=== PATIENT | male | born 1960 | race Caucasian/White ===

== ENCOUNTER → 2018-04-30 11:26 | Outpatient (CLI) | payer OTHER, SELFPAY ==
--- NOTE | 2018-04-30 11:28 | DI.RAD.S_ITS ---
PROCEDURE: XR SHOULDER RT MIN 2V INDICATIONS: 57 year-old male with right shoulder pain. TECHNIQUE: 3 views of the shoulder were acquired. COMPARISON: [facility], , SHOULDER MINIMUM 2VIEW RIGHT, 07/30/2013, 8:13. FINDINGS: Bones: No fractures or dislocations. There is mild acromioclavicular joint degeneration. No suspicious bony lesions. Visualized ribs appear intact. Soft tissues: There is persistent small soft tissue calcification adjacent to the humeral head. IMPRESSION: No significant interval change in mild acromioclavicular joint degeneration, as well as rotator cuff calcific tendinitis. Dictated by: Lionel Ríos M.D. on 04/30/2018 at 12:26 Approved by: Lionel Ríos M.D. on 04/30/2018 at 12:28
== END ==
PROVIDERS: PCP Family Medicine; Visit Provider Physician Assistant
DX: M19.011 Primary osteoarthritis, right shoulder (principal); M75.31 Calcific tendinitis of right shoulder; M25.511 Pain in right shoulder
CPT/HCPCS: 73030

== ENCOUNTER → 2018-07-18 14:00 | Outpatient (CLI) | payer OTHER, SELFPAY | PROVIDERS: Family Provider Family Medicine; PCP Family Medicine | DX: Z23 Encounter for immunization (principal) | CPT/HCPCS: 90471; 90686 ==

== ENCOUNTER → 2018-12-28 07:37 | Outpatient (CLI) | payer OTHER, SELFPAY ==
--- NOTE | 2018-12-28 07:38 | DI.MRI.S_ITS ---
PROCEDURE: MR HEAD/BRAIN WO CON INDICATIONS: intermittent loss of vision right eye TECHNIQUE: Noncontrast axial T1 spin echo, axial T2 fast spin echo, sagittal and axial FLAIR, coronal T2 fast spin echo, axial gradient echo, axial diffusion and ADC through the brain. COMPARISON: [facility], , CT HEAD WITH CONTRAST, 06/04/2001, 8:51. FINDINGS: Image quality: Excellent. CSF Spaces: Basal cisterns are patent. No extra-axial fluid collections. Ventricles are normal in size and shape. Brain: No intracranial masses or hemorrhage. Zimmerman/white matter interface is normal. Brainstem appears normal. Diffusion-weighted images demonstrate no acute ischemic insult. No chronic ischemic insults. Normal intravascular flow voids are present. Skull and face: Calvarium has normal marrow signal. Orbits appear normal. Sinuses: Sinuses and mastoids are clear. IMPRESSION: 1. No explanation for vision loss. 2. No acute process. No recent infarct. Dictated by: Lori Huerta M.D. on 12/30/2018 at 9:01 Approved by: Lori Huerta M.D. on 12/30/2018 at 9:02
== END ==
PROVIDERS: Family Provider Family Medicine; PCP Family Medicine; Visit Provider Nurse Practitioner Family
DX: H53.9 Unspecified visual disturbance (principal)
CPT/HCPCS: 70551

== ENCOUNTER → 2018-12-31 07:07 | Outpatient (CLI) | payer OTHER, SELFPAY ==
--- NOTE | 2018-12-31 07:08 | DI.US.S_ITS ---
PROCEDURE: US CAROTID DOPPLER BI INDICATIONS: intermittent loss of vision right eye TECHNIQUE: Color and pulse Doppler interrogation was performed of both carotid systems, with image documentation and velocity measurements. COMPARISON: [facility], MR, MR HEAD/BRAIN WO CON, 12/28/2018, 7:56. FINDINGS: Stenosis calculations are based on SRU (Society of Radiologists in Ultrasound) criteria. Right side: Brachial blood pressure: 124/77 mm Hg. Common carotid artery peak systolic velocity: 78 cm/sec. Internal carotid artery peak systolic velocity: 82 cm/sec. Internal carotid artery end diastolic velocity: 33 cm/sec. External carotid artery peak systolic velocity: 132 cm/sec. ICA/CCA peak systolic ratio: 1.1. Zimmerman scale imaging description: Calcified plaques at the bifurcation Percent internal carotid artery stenosis: Less than 50%. Vertebral artery: Flow direction is antegrade. Left side: Brachial blood pressure: 128/83 mm Hg. Common carotid artery peak systolic velocity: 73 cm/sec. Internal carotid artery peak systolic velocity: 92 cm/sec. Internal carotid artery end diastolic velocity: 34 cm/sec. External carotid artery peak systolic velocity: 129 cm/sec. ICA/CCA peak systolic ratio: 1.3. Zimmerman scale imaging description: Posterior fat plaques at the bifurcation Percent internal carotid artery stenosis: Less than 50%. Vertebral artery: Flow direction is antegrade. IMPRESSION: 1. Less than 50% internal carotid artery stenosis bilaterally. 2. Calcified plaques at carotid bifurcations. 3. Antegrade vertebral artery flow bilaterally. Dictated by: Guy Johansen M.D. on 12/31/2018 at 11:31 Approved by: Guy Johansen M.D. on 12/31/2018 at 11:33
== END ==
PROVIDERS: Family Provider Family Medicine; PCP Family Medicine; Visit Provider Nurse Practitioner Family
DX: H53.9 Unspecified visual disturbance (principal); I65.23 Occlusion and stenosis of bilateral carotid arteries
CPT/HCPCS: 93880

== ENCOUNTER → 2019-08-05 11:06 | Outpatient (CLI) | payer OTHER, SELFPAY | PROVIDERS: PCP Family Medicine | DX: Z23 Encounter for immunization (principal) | CPT/HCPCS: 90471; 90686 ==

== ENCOUNTER → 2020-04-21 09:22 | Outpatient (CLI) | payer OTHER, SELFPAY ==
[2020-04-21 13:46] LABS: Aspartate Aminotransferase 21 IU/L (17-59); Cholesterol 149 mg/dL (140-199); HDL Cholesterol 33 mg/dL (40-60); LDL Cholesterol Calculated 80 mg/dL (<100); Triglycerides 181 mg/dL (35-150)
== END ==
PROVIDERS: PCP Internal Medicine; Referring Provider Internal Medicine; Visit Provider Internal Medicine
DX: E78.2 Mixed hyperlipidemia (principal)
CPT/HCPCS: 36415; 80061; 84450

== ENCOUNTER → 2020-08-10 19:59 | Outpatient (CLI) | payer OTHER, SELFPAY | PROVIDERS: PCP Internal Medicine; Referring Provider Internal Medicine; Visit Provider Internal Medicine | DX: Z23 Encounter for immunization (principal) | CPT/HCPCS: 90471; 90686 ==

== ENCOUNTER → 2020-11-04 11:43 | Outpatient (CLI) | payer OTHER, SELFPAY ==
[2020-11-04] MEDS: COVID-19 VACC(MODERNA-1)/PF 100 MCG/0.5 ML VIAL IM (11:48)
== END ==
PROVIDERS: PCP Internal Medicine; Visit Provider Internal Medicine
DX: Z23 Encounter for immunization (principal)
CPT/HCPCS: 0011A; 91301

== ENCOUNTER → 2020-12-01 16:04 | Outpatient (CLI) | payer OTHER, SELFPAY ==
[2020-12-01] MEDS: COVID-19 VACC #2, MRNA(MOD) 100 MCG/0.5 ML VIAL IM (16:14)
== END ==
PROVIDERS: PCP Internal Medicine; Visit Provider Internal Medicine
DX: Z23 Encounter for immunization (principal)
CPT/HCPCS: 0012A; 91301

== ENCOUNTER → 2021-03-09 09:07 | Outpatient (CLI) | payer OTHER, SELFPAY ==
--- NOTE | 2021-03-09 | DI.RAD.S_ITS ---
PROCEDURE: XR SHOULDER LT MIN 2V INDICATIONS: shoulder pain TECHNIQUE: 3 views of the shoulder were acquired. COMPARISON: [facility], CR, XR SHOULDER RT MIN 2V, 04/30/2018, 11:25. FINDINGS: Bones: No fractures or dislocations. No suspicious bony lesions. Visualized ribs appear intact. Moderate acromioclavicular and mild glenohumeral joint space narrowing with periarticular osteophyte formation. Soft tissues: Calcification involving the rotator cuff. IMPRESSION: 1. Moderate acromioclavicular and mild glenohumeral joint degeneration. 2. Calcific tendinitis of the rotator cuff. Dictated by: Arie YAN Interpreted: Genia Rainey MD on 03/09/2021 at 9:46 Transcribed by: TRISHA on 03/09/2021 at 9:47 Approved by: Genia Rainey M.D. on 03/09/2021 at 13:28
== END ==
PROVIDERS: PCP Internal Medicine; Referring Provider Internal Medicine; Visit Provider Internal Medicine
DX: M25.519 Pain in unspecified shoulder (principal); M19.012 Primary osteoarthritis, left shoulder; M75.32 Calcific tendinitis of left shoulder
CPT/HCPCS: 73030

== ENCOUNTER → 2021-03-12 07:35 | Outpatient (CLI) | payer OTHER, SELFPAY ==
[2021-03-12 09:31] LABS: Cholesterol 150 mg/dL (140-199); Glucose 98 mg/dL (70-100); HDL Cholesterol 43 mg/dL (40-60); LDL Cholesterol Calculated 93 mg/dL (<100); Triglycerides 70 mg/dL (35-150)
[2021-03-14 10:57] LABS: Prostate Specific Antigen 0.515 ng/mL (0.10-4.00)
== END ==
PROVIDERS: PCP Internal Medicine; Referring Provider Internal Medicine; Visit Provider Internal Medicine
DX: E78.2 Mixed hyperlipidemia (principal); N40.1 Benign prostatic hyperplasia with lower urinary tract symptoms
CPT/HCPCS: 36415; 80061; 82947; 84153

== ENCOUNTER → 2021-08-16 | Outpatient (CLI) | payer OTHER, SELFPAY | PROVIDERS: PCP Internal Medicine; Referring Provider Internal Medicine; Visit Provider Internal Medicine | DX: Z23 Encounter for immunization (principal) | CPT/HCPCS: 90471; 90686 ==

== ENCOUNTER → 2021-09-13 15:58 | Outpatient (CLI) | payer OTHER, SELFPAY ==
[2021-09-13 16:37] LABS: COVID19 -Nasal RAPID Negative (Negative)
== END ==
PROVIDERS: PCP Internal Medicine; Referring Provider Physician Assistant; Visit Provider Physician Assistant
DX: Z20.822 Contact with and (suspected) exposure to COVID-19 (principal)
CPT/HCPCS: 87635

== ENCOUNTER → 2021-09-21 16:10 | Outpatient (CLI) | payer OTHER, SELFPAY ==
[2021-09-21 16:42] LABS: COVID19 -Nasal RAPID Negative (Negative)
== END ==
PROVIDERS: PCP Internal Medicine; Referring Provider Nurse Practitioner Family; Visit Provider Nurse Practitioner Family
DX: Z20.822 Contact with and (suspected) exposure to COVID-19 (principal)
CPT/HCPCS: 87635

== ENCOUNTER → 2022-08-18 10:14 | Outpatient (CLI) | payer OTHER, SELFPAY | PROVIDERS: PCP Internal Medicine; Referring Provider Internal Medicine; Visit Provider Internal Medicine | DX: Z23 Encounter for immunization (principal) | CPT/HCPCS: 90471; 90686 ==

== ENCOUNTER → 2023-01-15 07:06 | Outpatient (CLI) | payer OTHER, SELFPAY ==
--- NOTE | 2023-01-15 | DI.RAD.S_ITS ---
PROCEDURE: XR CHEST 2V INDICATIONS: COUGH TECHNIQUE: 2 views of the chest were acquired. COMPARISON: None. FINDINGS: Surgical changes and devices: None. Lungs and pleura: Lungs are clear. No pleural effusions or pneumothorax. Mediastinum: Mediastinal contours are normal. Heart size is normal. Bones and chest wall: No suspicious bony abnormalities. Soft tissues appear unremarkable. IMPRESSION: No acute cardiopulmonary abnormality. Dictated by: Marciano Zamora M.D. on 01/15/2023 at 9:09 Approved by: Marciano Zamora M.D. on 01/15/2023 at 9:11
== END ==
PROVIDERS: PCP Student in an Organized Health Care Education/Training Program; Referring Provider Student in an Organized Health Care Education/Training Program; Visit Provider Student in an Organized Health Care Education/Training Program
DX: R05.3 Chronic cough (principal)
CPT/HCPCS: 71046

== ENCOUNTER → 2023-08-16 | Outpatient (CLI) | payer OTHER, SELFPAY | PROVIDERS: PCP Student in an Organized Health Care Education/Training Program; Referring Provider Family Medicine; Visit Provider Family Medicine | DX: Z23 Encounter for immunization (principal) | CPT/HCPCS: 90471; 90686 ==

== ENCOUNTER → 2024-02-09 07:43 | Outpatient (CLI) | payer OTHER, SELFPAY ==
[2024-02-09 08:48] LABS: Alanine Aminotransferase 31 IU/L (<50); Albumin 4.1 g/dL (3.5-5.0); Albumin Globulin Ratio 1.5 (1.0-2.8); Alkaline Phosphatase 83 U/L (38-126); Aspartate Aminotransferase 20 IU/L (17-59); Bilirubin Total 0.8 mg/dL (0.2-1.3); Blood Urea Nitrogen 17 mg/dL (9-20); Calcium 9.1 mg/dL (8.4-10.2); Carbon Dioxide 25 mmol/L (22-32); Chloride 106 mmol/L (98-107); Cholesterol 180 mg/dL (140-199); Estimated Glomerular Filt Rate > 60 mL/min (>60); Globulin 2.8 g/dL (1.7-4.1); Glucose 102 mg/dL (80-110); HDL Cholesterol 40 mg/dL (40-60); HEMOLYSIS < 15 (0-50); LDL Cholesterol Calculated 118 mg/dL (<100); Sodium 139 mmol/L (137-145); Total Protein 6.9 g/dL (6.3-8.2); Triglycerides 112 mg/dL (35-150)
[2024-02-09 09:19] LABS: Prostate Specific Antigen 0.583 ng/mL (0.10-4.00)
[2024-02-11 18:18] LABS: Hep C Virus Ab w/Reflex Quant NEGATIVE s/c (NEGATIVE)
== END ==
PROVIDERS: PCP Student in an Organized Health Care Education/Training Program; Referring Provider Internal Medicine; Visit Provider Internal Medicine
DX: E78.2 Mixed hyperlipidemia (principal); Z13.1 Encounter for screening for diabetes mellitus; Z11.59 Encounter for screening for other viral diseases; R35.0 Frequency of micturition
CPT/HCPCS: 36415; 80053; 80061; 84153; 86803; 87522

== ENCOUNTER → 2024-02-29 08:35 | Outpatient (CLI) | payer OTHER, SELFPAY ==
--- NOTE | 2024-02-29 | DI.US.S_ITS ---
PROCEDURE: US PERIPH VENOUS UP EXTREM RT INDICATIONS: EDEMA OF RIGHT UPPER ARM TECHNIQUE: Real-time imaging, as well as color and pulse Doppler interrogation, was performed of the upper extremity deep veins from the inferior neck to the antecubital fossa. COMPARISON: None. FINDINGS: The internal jugular vein, visualized portions of the subclavian vein, axillary, and brachial veins are free of intraluminal thrombus. Where physically possible, the veins are normally compressible. Color and pulse Doppler demonstrate normal intraluminal flow, with expected phasicity and pulsatility. Additional scanning of the cephalic and basilic veins of the superficial system demonstrates normal compressibility, without thrombus. The distal radial artery and ulnar artery are examined and demonstrate normal appearing, triphasic waveforms. IMPRESSION: No findings of upper extremity deep venous thrombosis can be seen. Normal appearing, triphasic waveforms can be seen involving the distal aspects of the radial artery and the ulnar artery. Dictated by: Virgil Gonzales M.D. on 02/29/2024 at 11:52 Approved by: Virgil Gonzales M.D. on 02/29/2024 at 11:53
== END ==
PROVIDERS: PCP Internal Medicine; Referring Provider Internal Medicine; Visit Provider Internal Medicine
DX: R60.0 Localized edema (principal)
CPT/HCPCS: 93971

== ENCOUNTER 2024-06-06 13:53 | Emergency (ER) | payer OTHER, SELFPAY ==
[2024-06-06] VITALS (21 sets, daily range): BP systolic 133–237; BP diastolic 56–106; PULSE 67–101; RESP 14–25; TEMP 36.9; O2SAT 95–99; BMI 31.6
--- NOTE | 2024-06-06 14:00 | DI.RAD.S_ITS ---
PROCEDURE: XR CHEST 1V INDICATIONS: chest pain TECHNIQUE: One view of the chest was acquired. COMPARISON: [facility], CR, XR CHEST 2V, 01/15/2023, 7:07. FINDINGS: Surgical changes and devices: None. Lungs and pleura: Lungs are clear. No pleural effusions or pneumothorax. Mediastinum: Mediastinal contours appear normal. Heart size is normal. Bones and chest wall: No suspicious bony lesions. Overlying soft tissues appear unremarkable. IMPRESSION: No acute cardiopulmonary abnormality is seen. Dictated by: Eulogio Potts M.D. on 06/06/2024 at 14:30 Approved by: Eulogio Potts M.D. on 06/06/2024 at 14:31
--- NOTE | 2024-06-06 14:00 | EKG_ITS ---
[address] [address] Test Date: 2024-06-06 Pat Name: Chris Laird Department: Room: Gender: Male Firm Administrator: ANTONIETTA : 1960 Requested By: Order Number: [id number] Reading MD: Pablo Crump Measurements Intervals [place] Rate: 95 P: 63 TX: 122 QRS: 86 QRSD: 126 T: 25 QT: 384 QTc: 482 Interpretive Statements Normal sinus rhythm Right bundle branch block Electronically Signed On 06-07-2024 18:31:22 PDT by Pablo Crump
[2024-06-06] MEDS: NITROGLYCERIN 0.4 MG SL TAB SL ×2 (14:02→14:11)
[2024-06-06] MEDS: SODIUM CHLORIDE 0.9% 1,000 ML 150 ML IV (14:04)
[2024-06-06 14:12] LABS: Add Manual Diff / Slide Review NO; Basophils Absolute Auto 100 /uL (0-100); Basophils Percent Auto 0.9 % (0-2); Eosinophils Absolute Auto 200 /uL (0-450); Hematocrit 45.7 % (41-53); Lymphocytes Absolute Auto 2300 /uL (1100-4500); Lymphocytes Percent Auto 21.9 % (25-40); Mean Corpuscular HGB Conc 34.9 % (30-36); Mean Corpuscular Hemoglobin 30.7 PG (26-34); Mean Corpuscular Volume 87.9 fL (80-100); Monocytes Absolute Auto 900 /uL (0-900); Monocytes Percent Auto 8.3 % (3-14); Neutrophils Absolute Auto 7000 /uL (1500-7000); Neutrophils Percent Auto 66.9 % (50-75); Platelet Count 192 X10^3/uL (150-400); Red Cell Distribution Width 13.3 % (11.6-14.8); White Blood Cell Count 10.4 X10^3/uL (4.5-11.0)
--- NOTE | 2024-06-06 14:13 | ED_ITS ---
HPI - Chest Pain <Emilee Pérez DO - Last Filed: 06/08/24 11:10> General Chief Complaint: Chest Pain Stated Complaint: chest px Time Seen by Provider: 06/06/24 13:59 History of Present Illness HPI narrative: Patient is a 64-year-old male history of hyperlipidemia carotid endarterectomy presenting today with chest heaviness. He is active he has no known history of coronary artery disease presents today with some heaviness nonradiating no significant shortness of breath. No provocation or palliation. 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 He did take aspirin prior to arrival. Related Data Home Medications Medication Instructions Recorded Confirmed aspirin 81 mg tablet,delayed 81 mg PO DAILY 12/26/18 12/26/18 release (Adult Aspirin Regimen) multivitamin with minerals (Men's 1 tab PO DAILY 12/26/18 12/26/18 One Daily tablet) Previous Rx's Medication Instructions Recorded lorazepam 1 mg tablet 1 mg PO .COMPLEX MRI anxiety #1 tab 12/27/18 methylprednisolone 4 mg tablets in See Rx Instructions PO PER PKG DIR 10/16/19 a dose pack (Medrol (Damien)) radiculopathy #21 ea Allergies Allergy/AdvReac Type Severity Reaction Status Date / Time No Known Drug Allergies Allergy Verified 06/06/24 13:56 Patient History <Emilee Pérez DO - Last Filed: 06/08/24 11:10> Social History Smoking Status: Never smoker Smoking Status: Never smoker alcohol intake frequency: holidays/special occasions only Substance Use Type: does not use Exam <Emilee Pérez DO - Last Filed: 06/08/24 11:10> Initial Vital Signs Initial Vital Signs: Vital Signs Temperature 98.5 F 06/06/24 13:56 Pulse Rate 93 H 06/06/24 13:56 Respiratory Rate 17 06/06/24 13:56 Blood Pressure 237/106 H 06/06/24 13:56 Pulse Oximetry 98 06/06/24 13:56 Oxygen Delivery Method Room Air 06/06/24 13:56 GENERAL: Alert 64-year-old male and in [no acute] distress. HEENT: Head atraumatic,EOMI, pupils reactive, face symmetric, [moist] mucous membranes CARDIOVASCULAR: Regular rate and rhythm without murmurs, rubs or gallops. RESPIRATORY: Breath sounds equal bilaterally, no wheezes rales or rhonchi. ABDOMEN: Soft, nontender. Normoactive bowel sounds all 4 quadrants. No guarding or rebound. EXTREMITIES: Normal range of motion, no clubbing or edema. Neurovascularly intact NEUROLOGICAL: Alert and oriented x4.Normal gait and speech. Cranial nerves II through XII grossly intact. SKIN: Warm, dry, no laceration, no petechiae, no rashes or lesions. <Laquita Minor MD - Last Filed: 06/07/24 03:36> Initial Vital Signs Initial Vital Signs: Vital Signs Temperature 98.5 F 06/06/24 13:56 Pulse Rate 93 H 06/06/24 13:56 Respiratory Rate 17 06/06/24 13:56 Blood Pressure 237/106 H 06/06/24 13:56 Pulse Oximetry 98 06/06/24 13:56 Oxygen Delivery Method Room Air 06/06/24 13:56 Scores <Emilee Pérez DO - Last Filed: 06/08/24 11:10> HEART Score Heart Score history: Highly Suspicious Heart Score EKG: Normal Heart Score Age: 45-64 years old Heart Score risk factors: 1-2 risk factors Heart Score troponin: < or = to normal limit Heart Score Total: 4 <Laquita Minor MD - Last Filed: 06/07/24 03:36> HEART Score Heart Score Total: 4 Course <Emilee Pérez DO - Last Filed: 06/08/24 11:10> Orders Ordered: Discontinued Medications Sodium Chloride (Normal Saline 0.9%) 1,000 mls @ 150 mls/hr IV CONT ANTOINETTE Last Infusion: 06/06/24 19:58 Dose: Infused Documented By: Admin: 06/06/24 14:04 Dose: 150 mls/hr Documented By: RB Nitroglycerin (Nitroglycerin 0.4 Mg Sl Tab) 0.4 mg SL [id number] PRN PRN Reason: Chest Pain Last Admin: 06/06/24 14:11 Dose: 0.4 mg Documented By: Admin: 06/06/24 14:02 Dose: 0.4 mg Documented By: RB Vital Signs Vital signs: Vital Signs - 8 hr 06/06/24 19:38 06/06/24 19:38 06/06/24 20:00 Pulse Rate 75 Respiratory Rate 16 Blood Pressure 166/71 H 133/63 Pulse Oximetry 99 06/06/24 20:00 06/06/24 20:30 06/06/24 20:30 Pulse Rate 71 71 Respiratory Rate 21 23 Blood Pressure 136/75 Pulse Oximetry 96 96 <Laquita Minor MD - Last Filed: 06/07/24 03:36> Orders Ordered: Discontinued Medications Sodium Chloride (Normal Saline 0.9%) 1,000 mls @ 150 mls/hr IV CONT ANTOINETTE Last Infusion: 06/06/24 19:58 Dose: Infused Documented By: Admin: 06/06/24 14:04 Dose: 150 mls/hr Documented By: RB Nitroglycerin (Nitroglycerin 0.4 Mg Sl Tab) 0.4 mg SL [id number] PRN PRN Reason: Chest Pain Last Admin: 06/06/24 14:11 Dose: 0.4 mg Documented By: Admin: 06/06/24 14:02 Dose: 0.4 mg Documented By: RB Vital Signs Vital signs: Vital Signs - 8 hr 06/06/24 19:38 06/06/24 19:38 06/06/24 20:00 Pulse Rate 75 Respiratory Rate 16 Blood Pressure 166/71 H 133/63 Pulse Oximetry 99 06/06/24 20:00 06/06/24 20:30 06/06/24 20:30 Pulse Rate 71 71 Respiratory Rate 21 23 Blood Pressure 136/75 Pulse Oximetry 96 96 MDM - Chest Pain <Emilee Pérez DO - Last Filed: 06/08/24 11:10> Lab Data 06/06/24 14:00 06/06/24 14:00 Labs: Lab Results 06/06/24 06/06/24 Range/Units 14:00 16:00 WBC 10.4 (4.5-11.0) X10^3/uL RBC 5.20 (4.5-5.9) X10^6/uL Hgb 16.0 (13.5-17.5) g/dL Hct 45.7 (41-53) % MCV 87.9 (80-100) fL MCH 30.7 (26-34) PG MCHC 34.9 (30-36) % RDW 13.3 (11.6-14.8) % Plt Count 192 (150-400) X10^3/uL Neut % (Auto) 66.9 (50-75) % Lymph % (Auto) 21.9 L (25-40) % Brooke % (Auto) 8.3 (3-14) % Eos % (Auto) 2.0 (2-4) % Baso % (Auto) 0.9 (0-2) % Neut # (Auto) 7000 (6595-1688) /uL Lymph # (Auto) 2300 (8904-6402) /uL Brooke # (Auto) 900 (0-900) /uL Eos # (Auto) 200 (0-450) /uL Baso # (Auto) 100 (0-100) /uL PT 12.2 (9.4-12.5) SECONDS INR 1.1 (0.9-1.3) APTT 37 H (25.1-36.5) SECONDS Sodium 140 (137-145) mmol/L Potassium 4.0 (3.4-5.1) mmol/L Chloride 106 (98-107) mmol/L Carbon Dioxide 25 (22-32) mmol/L BUN 26 H (9-20) mg/dL Creatinine 0.87 (0.66-1.25) mg/dL Estimated GFR > 60 (>60) mL/min BUN/Creatinine Ratio 29.9 H (6-22) Glucose 99 (80-110) mg/dL Calcium 9.3 (8.4-10.2) mg/dL Total Bilirubin 0.4 (0.2-1.3) mg/dL AST 28 (17-59) IU/L ALT 28 (<50) IU/L Alkaline Phosphatase 79 (38-126) U/L Total Creatine Kinase 96 (55-170) U/L Troponin I 0.020 0.014 (0.01-0.034) ng/mL NT-Pro-B Natriuret Pep 71 (<125) pg/mL Total Protein 7.3 (6.3-8.2) g/dL Albumin 4.5 (3.5-5.0) g/dL Globulin 2.8 (1.7-4.1) g/dL Albumin/Globulin Ratio 1.6 (1.0-2.8) Lipase 135 (23-300) U/L Imaging Data Chest x-ray: Radiologist's Impression: PROCEDURE: XR CHEST 1V INDICATIONS: chest pain TECHNIQUE: One view of the chest was acquired. COMPARISON: [facility], CR, XR CHEST 2V, 01/15/2023, 7:07. FINDINGS: Surgical changes and devices: None. Lungs and pleura: Lungs are clear. No pleural effusions or pneumothorax. Mediastinum: Mediastinal contours appear normal. Heart size is normal. Bones and chest wall: No suspicious bony lesions. Overlying soft tissues appear unremarkable. IMPRESSION: No acute cardiopulmonary abnormality is seen. Dictated by: Eulogio Potts M.D. on 06/06/2024 at 14:30 ECG Data Attestation: I personally reviewed and interpreted this ECG as follows: Prior ECG tracings: available for review Interpretation: Normal sinus rhythm rate 95 OK interval 122 QRS 126 QTC 4 82 new right bundle- branch block from previous EKG in 2017 no acute ischemia EKG 2. Persistent right bundle-branch normal sinus rhythm rate 68 no ischemic changes MDM Narrative Medical decision making narrative: Patient is a 64-year-old male hyperlipidemia presenting today with chest heaviness. It was relieved with nitro but then comes and goes for a couple of minutes at a time nonradiating. EKGs have been reviewed and show a new right bundle-branch block but no ischemia Blood work has been reviewed troponins are technically negative but not undetectable. Troponin 1. Is 0.020 with repeat 0.014 WBC 10.4 hemoglobin 16.0 hematocrit 45.7, platelets 192 sodium 140 potassium 4.0 chloride 106 carbon dioxide 25 BUN 26 creatinine 0.8, liver enzymes bilirubin within normal limits Chest x-ray has been reviewed no acute cardiopulmonary process EKGs have been reviewed new right bundle-branch block but no ischemia 17:15 Dr. Villela on-call cardiology updated patient's symptoms test results agrees that patient needs to be transferred for stress test. Requests that patient be NPO after midnight see cardiology 1st to determine stress test versus cardiac catheterization <Laquita Minor MD - Last Filed: 06/07/24 03:36> Lab Data Labs: Lab Results 06/06/24 06/06/24 Range/Units 14:00 16:00 WBC 10.4 (4.5-11.0) X10^3/uL RBC 5.20 (4.5-5.9) X10^6/uL Hgb 16.0 (13.5-17.5) g/dL Hct 45.7 (41-53) % MCV 87.9 (80-100) fL MCH 30.7 (26-34) PG MCHC 34.9 (30-36) % RDW 13.3 (11.6-14.8) % Plt Count 192 (150-400) X10^3/uL Neut % (Auto) 66.9 (50-75) % Lymph % (Auto) 21.9 L (25-40) % Brooke % (Auto) 8.3 (3-14) % Eos % (Auto) 2.0 (2-4) % Baso % (Auto) 0.9 (0-2) % Neut # (Auto) 7000 (6257-4449) /uL Lymph # (Auto) 2300 (7501-1326) /uL Brooke # (Auto) 900 (0-900) /uL Eos # (Auto) 200 (0-450) /uL Baso # (Auto) 100 (0-100) /uL PT 12.2 (9.4-12.5) SECONDS INR 1.1 (0.9-1.3) APTT 37 H (25.1-36.5) SECONDS Sodium 140 (137-145) mmol/L Potassium 4.0 (3.4-5.1) mmol/L Chloride 106 (98-107) mmol/L Carbon Dioxide 25 (22-32) mmol/L BUN 26 H (9-20) mg/dL Creatinine 0.87 (0.66-1.25) mg/dL Estimated GFR > 60 (>60) mL/min BUN/Creatinine Ratio 29.9 H (6-22) Glucose 99 (80-110) mg/dL Calcium 9.3 (8.4-10.2) mg/dL Total Bilirubin 0.4 (0.2-1.3) mg/dL AST 28 (17-59) IU/L ALT 28 (<50) IU/L Alkaline Phosphatase 79 (38-126) U/L Total Creatine Kinase 96 (55-170) U/L Troponin I 0.020 0.014 (0.01-0.034) ng/mL NT-Pro-B Natriuret Pep 71 (<125) pg/mL Total Protein 7.3 (6.3-8.2) g/dL Albumin 4.5 (3.5-5.0) g/dL Globulin 2.8 (1.7-4.1) g/dL Albumin/Globulin Ratio 1.6 (1.0-2.8) Lipase 135 (23-300) U/L MDM Narrative Medical decision making narrative: Patient is a 64-year-old male hyperlipidemia presenting today with chest heaviness. It was relieved with nitro but then comes and goes for a couple of minutes at a time nonradiating. EKGs have been reviewed and show a new right bundle-branch block but no ischemia Blood work has been reviewed troponins are technically negative but not undetectable. Troponin 1. Is 0.020 with repeat 0.014 WBC 10.4 hemoglobin 16.0 hematocrit 45.7, platelets 192 sodium 140 potassium 4.0 chloride 106 carbon dioxide 25 BUN 26 creatinine 0.8, liver enzymes bilirubin within normal limits Chest x-ray has been reviewed no acute cardiopulmonary process EKGs have been reviewed new right bundle-branch block but no ischemia 17:15 Dr. Villela on-call cardiology updated patient's symptoms test results agrees that patient needs to be transferred for stress test. Requests that patient be NPO after midnight see cardiology 1st to determine stress test versus cardiac catheterization Dr. Minor - @[address] Buck hospitalist, who accepted patient for transfer. Pt pain free currently 2100 -patient transferred in stable condition to [facility] Critical Care Time <Emilee Pérez DO - Last Filed: 06/08/24 11:10> Critical Care Time Critical Care Time: Yes Total Critical Care Time: 31 Attestation: The high probability of a clinically significant, sudden or life threatening deterioration of the [cardiovascular] system(s) required my full and direct attention, intervention and personal management. The aggregate critical care time was 31 minutes. This time is in addition to time spent performing reported procedures but includes the following: [x] Data Review and interpretation [x] Patient assessment and monitoring of vital signs [x] Documentation [x] Medication orders and management Discharge Plan Departure Patient Disposition: [facility] Clinical Impression: Chest pain Prescriptions: No Action aspirin [Adult Aspirin Regimen] 81 mg tablet,delayed release (DR/EC) 81 mg PO DAILY multivitamin with minerals [Men's One Daily] tablet 1 tab PO DAILY lorazepam 1 mg tablet 1 mg PO .COMPLEX Qty: 1 0RF Rx Instructions: 1 mg PO 30-60mins before MRI; Do not drive for 24 hours after taking methylprednisolone [Medrol (Damien)] 4 mg tablets,dose pack See Rx Instructions PO PER PKG DIR Qty: 21 0RF Rx Instructions: PO PER PKG DIR Referrals: Kamla Zhao DO [Primary Care Provider] -
[2024-06-06 14:27] LABS: INR 1.1 (0.9-1.3); Prothrombin Time 12.2 SECONDS (9.4-12.5)
[2024-06-06 14:29] LABS: PTT Partial Thromboplastin Tim 37 SECONDS (25.1-36.5)
[2024-06-06 14:42] LABS: Alanine Aminotransferase 28 IU/L (<50); Albumin 4.5 g/dL (3.5-5.0); Albumin Globulin Ratio 1.6 (1.0-2.8); Alkaline Phosphatase 79 U/L (38-126); Aspartate Aminotransferase 28 IU/L (17-59); BUN Creatinine Ratio 29.9 (6-22); Bilirubin Total 0.4 mg/dL (0.2-1.3); Blood Urea Nitrogen 26 mg/dL (9-20); Calcium 9.3 mg/dL (8.4-10.2); Carbon Dioxide 25 mmol/L (22-32); Chloride 106 mmol/L (98-107); Creatine Kinase 96 U/L (55-170); Estimated Glomerular Filt Rate > 60 mL/min (>60); Globulin 2.8 g/dL (1.7-4.1); Glucose 99 mg/dL (80-110); HEMOLYSIS 17 (0-50); Lipase 135 U/L (23-300); Sodium 140 mmol/L (137-145); Total Protein 7.3 g/dL (6.3-8.2)
[2024-06-06 14:54] LABS: NT-proBNP (BNP-Adult 18+) 71 pg/mL (<125)
--- NOTE | 2024-06-06 16:14 | EKG_ITS ---
[address] [address] Test Date: 2024-06-06 Pat Name: Chris Laird Department: Room: Gender: Male Fisher Scallop: ANTONIETTA : 1960 Requested By: Order Number: [id number] Reading MD: Pablo Crump Measurements Intervals [place] Rate: 68 P: 63 MN: 126 QRS: 77 QRSD: 130 T: 35 QT: 416 QTc: 442 Interpretive Statements Normal sinus rhythm Right bundle branch block Electronically Signed On 06-07-2024 18:31:55 PDT by Pablo Crump
[2024-06-06 16:37] LABS: Troponin I 0.014 ng/mL (0.01-0.034)
== END 2024-06-06 20:50 | disposition short-term general hospital (02) ==
PROVIDERS: Emergency Provider Emergency Medicine; PCP Internal Medicine
DX: R07.9 Chest pain, unspecified (principal); I45.10 Unspecified right bundle-branch block
CPT/HCPCS: 36415; 71045; 80053; 82550; 83690; 83880; 84484; 85025; 85610; 85730; 93005; 99284; 99291

== ENCOUNTER 2024-08-01 07:26 | Emergency (ER) | payer OTHER, SELFPAY ==
[2024-08-01 07:31] VITALS: BP 174/90; PULSE 78; RESP 18; TEMP 36.4; O2SAT 98; BMI 31.6
[2024-08-01 07:34] VITALS: PULSE 78; O2SAT 99
--- NOTE | 2024-08-01 07:48 | PC.NURSE ---
Pt has had symptoms which started sunday including sore throat, difficulty swallowing and painful swallowing. He is able to tolerate water by mouth, but has difficulty swallowing solids due to pain and feeling like I cant breathe or get air in. He has had fevers, is taking ibuprofen (last dose yesterday evening). Denying chest pain or dizziness. Pt took a home covid test which was positive.
[2024-08-01 07:58] LABS: Strep Grp A by PCR Rapid Negative (Negative)
[2024-08-01 08:00] VITALS: BP 118/67; PULSE 65; O2SAT 98
--- NOTE | 2024-08-01 08:10 | ED_ITS ---
HPI - URI/Sore Throat General Chief Complaint: Upper Respiratory Symptoms Stated Complaint: swollen/sore throat- difficulty breathing Time Seen by Provider: 08/01/24 08:09 Source: patient Mode of arrival: Ambulatory History of Present Illness HPI Narrative: Patient 64-year-old male history of hypertension with known COVID presenting today with sore throat. He reports that he was diagnosed COVID 3 days ago. He has not had any Tylenol or ibuprofen since yesterday. He reports copious amounts of nasal drainage. Last night he woke up he felt like his throat was closing off and he could not breathe. He has no significant shortness of breath with exertion or chest pain. He has not hypoxic. He has difficulty time swallowing but is able to do so Related Data Home Medications Medication Instructions Recorded Confirmed aspirin 81 mg tablet,delayed 81 mg PO DAILY 12/26/18 12/26/18 release (Adult Aspirin Regimen) multivitamin with minerals (Men's 1 tab PO DAILY 12/26/18 12/26/18 One Daily tablet) Previous Rx's Medication Instructions Recorded lorazepam 1 mg tablet 1 mg PO .COMPLEX MRI anxiety #1 tab 12/27/18 methylprednisolone 4 mg tablets in See Rx Instructions PO PER PKG DIR 10/16/19 a dose pack (Medrol (Damien)) radiculopathy #21 ea Allergies Allergy/AdvReac Type Severity Reaction Status Date / Time No Known Drug Allergies Allergy Verified 06/06/24 13:56 Patient History Social History Smoking Status: Never smoker Smoking Status: Never smoker alcohol intake frequency: holidays/special occasions only Substance Use Type: does not use Exam Initial Vital Signs Initial Vital Signs: Vital Signs Temperature 97.6 F 08/01/24 07:31 Pulse Rate 78 08/01/24 07:31 Respiratory Rate 18 08/01/24 07:31 Blood Pressure 174/90 H 08/01/24 07:31 Pulse Oximetry 98 08/01/24 07:31 Oxygen Delivery Method Room Air 08/01/24 07:31 GENERAL: Alert 64-year-old male and in no acute distress. HEENT: Head atraumatic,EOMI, pupils reactive, PHARYNX: No significant erythema uvula swelling or deviation, there is some mild erythema airways patent CARDIOVASCULAR: Regular rate and rhythm without murmurs, rubs or gallops. RESPIRATORY: Breath sounds equal bilaterally, no wheezes rales or rhonchi. EXTREMITIES: Normal range of motion, no clubbing or edema. Neurovascularly intact NEUROLOGICAL: Alert and oriented x4. SKIN: Warm, dry, no laceration, no petechiae, no rashes or lesions. Course Orders Ordered: ED Orders 08/01/24 07:35 Strep Grp A by PCR Rapid Stat 08/01/24 08:45 CBC Auto Diff [Complete Blood Count AUTO DIFF] Stat CMP [Comprehensive Metabolic Panel] Stat Discontinued Medications Sodium Chloride (Normal Saline 0.9%) 1,000 mls @ 1,000 mls/hr IV BOLUS ONE Stop: 08/01/24 09:16 Last Infusion: 08/01/24 09:40 Dose: Infused Documented By: Admin: 08/01/24 08:26 Dose: 1,000 mls/hr Documented By: BILL Ketorolac Tromethamine (Ketorolac 30 Mg/Ml Vial) 15 mg IV NOW ONE Stop: 08/01/24 08:18 Last Admin: 08/01/24 08:25 Dose: 15 mg Documented By: BILL Vital Signs Vital signs: Vital Signs - 8 hr 08/01/24 07:31 08/01/24 07:34 08/01/24 08:00 Temperature 97.6 F Pulse Rate 78 78 65 Respiratory Rate 18 Blood Pressure 174/90 H Pulse Oximetry 98 99 98 Oxygen Delivery Method Room Air Room Air 08/01/24 08:00 08/01/24 08:31 08/01/24 09:00 Temperature Pulse Rate 79 69 Respiratory Rate Blood Pressure 118/67 Pulse Oximetry 92 98 Oxygen Delivery Method 08/01/24 09:00 08/01/24 09:30 08/01/24 09:30 Temperature Pulse Rate 69 Respiratory Rate Blood Pressure 122/68 132/59 L Pulse Oximetry 96 Oxygen Delivery Method MDM - URI/Sore Throat Lab Data 08/01/24 08:45 08/01/24 08:45 Labs: Lab Results 08/01/24 08/01/24 Range/Units 07:35 08:45 WBC 8.7 (4.5-11.0) X10^3/uL RBC 5.01 (4.5-5.9) X10^6/uL Hgb 15.2 (13.5-17.5) g/dL Hct 44.1 (41-53) % MCV 88.1 (80-100) fL MCH 30.3 (26-34) PG MCHC 34.4 (30-36) % RDW 13.4 (11.6-14.8) % Plt Count 172 (150-400) X10^3/uL Neut % (Auto) 74.8 (50-75) % Lymph % (Auto) 12.9 L (25-40) % Bullock % (Auto) 8.8 (3-14) % Eos % (Auto) 2.9 (2-4) % Baso % (Auto) 0.6 (0-2) % Neut # (Auto) 6500 (5848-7848) /uL Lymph # (Auto) 1100 (4749-4333) /uL Bullock # (Auto) 800 (0-900) /uL Eos # (Auto) 300 (0-450) /uL Baso # (Auto) 100 (0-100) /uL Sodium 137 (137-145) mmol/L Potassium 3.8 (3.4-5.1) mmol/L Chloride 105 (98-107) mmol/L Carbon Dioxide 25 (22-32) mmol/L BUN 14 (9-20) mg/dL Creatinine 0.78 (0.66-1.25) mg/dL Estimated GFR > 60 (>60) mL/min BUN/Creatinine Ratio 17.9 (6-22) Glucose 105 (80-110) mg/dL Calcium 9.0 (8.4-10.2) mg/dL Total Bilirubin 0.4 (0.2-1.3) mg/dL AST 23 (17-59) IU/L ALT 28 (<50) IU/L Alkaline Phosphatase 71 (38-126) U/L Total Protein 6.9 (6.3-8.2) g/dL Albumin 4.0 (3.5-5.0) g/dL Globulin 2.9 (1.7-4.1) g/dL Albumin/Globulin Ratio 1.4 (1.0-2.8) Group A Strep (PCR) Negative (Negative) MDM Narrative Medical decision making narrative: Patient is 64-year-old male history of hypertension presenting today with sore throat and known COVID. He reports the throat has been closing off he feels like he is difficulty swallowing. He has no evidence of peritonsillar abscess or retropharyngeal abscess uvula is not swollen no evidence of epiglottitis or angioedema. Blood work has been reviewed overall reassuring without significant leukocytosis SEAN or electrolyte abnormality He is given IV fluids and Toradol He has feeling a little bit better. I suspect that this is secondary to COVID. Discharge Plan Departure Patient Disposition: Home Clinical Impression: COVID-19 Instructions: DI for COVID-19 (Suspected or Confirmed ) Activity Restrictions/Additional Instructions: *You have been diagnosed with COVID-19 *What to do: At this time increase fluids take Tylenol recommend cough drops honey popsicles *Continue to take medications as directed Tylenol 1000 mg every 6 hours for [id number] pain Motrin 600 mg every 6 hours only if Tylenol is not working *Follow up with your primary care provider in 2-3 days or call [phone] *Return to ER if you should have increased shortness of breath chest pain difficulty swallowing or any new, worsening or concerning symptoms Prescriptions: No Action aspirin [Adult Aspirin Regimen] 81 mg tablet,delayed release (DR/EC) 81 mg PO DAILY multivitamin with minerals [Men's One Daily] tablet 1 tab PO DAILY lorazepam 1 mg tablet 1 mg PO .COMPLEX Qty: 1 0RF Rx Instructions: 1 mg PO 30-60mins before MRI; Do not drive for 24 hours after taking methylprednisolone [Medrol (Damien)] 4 mg tablets,dose pack See Rx Instructions PO PER PKG DIR Qty: 21 0RF Rx Instructions: PO PER PKG DIR Referrals: Kamla Zhao DO [Primary Care Provider] - Stand Alone Forms: Patient Portal/API
[2024-08-01] MEDS: KETOROLAC 30 MG/ML VIAL 15 MG IV (08:25)
[2024-08-01] MEDS: SODIUM CHLORIDE 0.9% 1,000 ML 1000 ML IV (08:26)
[2024-08-01 08:31] VITALS: PULSE 79; O2SAT 92
[2024-08-01 08:54] LABS: Add Manual Diff / Slide Review NO; Basophils Absolute Auto 100 /uL (0-100); Basophils Percent Auto 0.6 % (0-2); Eosinophils Absolute Auto 300 /uL (0-450); Eosinophils Percent Auto 2.9 % (2-4); Hematocrit 44.1 % (41-53); Hemoglobin 15.2 g/dL (13.5-17.5); Lymphocytes Absolute Auto 1100 /uL (1100-4500); Lymphocytes Percent Auto 12.9 % (25-40); Mean Corpuscular HGB Conc 34.4 % (30-36); Mean Corpuscular Hemoglobin 30.3 PG (26-34); Mean Corpuscular Volume 88.1 fL (80-100); Monocytes Absolute Auto 800 /uL (0-900); Monocytes Percent Auto 8.8 % (3-14); Neutrophils Absolute Auto 6500 /uL (1500-7000); Neutrophils Percent Auto 74.8 % (50-75); Platelet Count 172 X10^3/uL (150-400); Red Blood Cell Count 5.01 X10^6/uL (4.5-5.9); Red Cell Distribution Width 13.4 % (11.6-14.8); White Blood Cell Count 8.7 X10^3/uL (4.5-11.0)
[2024-08-01 09:00] VITALS: BP 122/68; PULSE 69; O2SAT 98
[2024-08-01 09:04] LABS: Alanine Aminotransferase 28 IU/L (<50); Albumin Globulin Ratio 1.4 (1.0-2.8); Alkaline Phosphatase 71 U/L (38-126); Aspartate Aminotransferase 23 IU/L (17-59); BUN Creatinine Ratio 17.9 (6-22); Bilirubin Total 0.4 mg/dL (0.2-1.3); Blood Urea Nitrogen 14 mg/dL (9-20); Carbon Dioxide 25 mmol/L (22-32); Chloride 105 mmol/L (98-107); Estimated Glomerular Filt Rate > 60 mL/min (>60); Globulin 2.9 g/dL (1.7-4.1); Glucose 105 mg/dL (80-110); HEMOLYSIS < 15 (0-50); Potassium 3.8 mmol/L (3.4-5.1); Sodium 137 mmol/L (137-145); Total Protein 6.9 g/dL (6.3-8.2)
[2024-08-01 09:30] VITALS: BP 132/59; PULSE 69; O2SAT 96
== END 2024-08-01 10:01 | disposition home or self-care (01) ==
PROVIDERS: Emergency Provider Emergency Medicine; PCP Internal Medicine
DX: U07.1 COVID-19 (principal)
CPT/HCPCS: 80053; 85025; 87651; 96361; 96374; 99283; 99284; J1885

== ENCOUNTER → 2024-08-29 15:08 | Outpatient (CLI) | payer OTHER, SELFPAY | PROVIDERS: PCP Internal Medicine; Referring Provider Internal Medicine; Visit Provider Internal Medicine | DX: Z23 Encounter for immunization (principal) | CPT/HCPCS: 90471; 90656 ==

== ENCOUNTER → 2025-04-04 07:32 | Outpatient (CLI) | payer OTHER, SELFPAY ==
[2025-04-04 09:23] LABS: Cholesterol 164 mg/dL (140-199); HDL Cholesterol 38 mg/dL (40-60); LDL Cholesterol Calculated 110 mg/dL (<100); Triglycerides 82 mg/dL (35-150)
== END ==
PROVIDERS: PCP Internal Medicine; Referring Provider Internal Medicine; Visit Provider Internal Medicine
DX: E78.5 Hyperlipidemia, unspecified (principal)
CPT/HCPCS: 36415; 80061

== ENCOUNTER → 2025-04-10 07:35 | Outpatient (CLI) | payer OTHER, SELFPAY ==
[2025-04-10 09:08] LABS: Prostate Specific Antigen 0.479 ng/mL (0.10-4.00)
== END ==
PROVIDERS: PCP Internal Medicine; Referring Provider Student in an Organized Health Care Education/Training Program; Visit Provider Student in an Organized Health Care Education/Training Program
DX: N13.8 Other obstructive and reflux uropathy (principal); N40.1 Benign prostatic hyperplasia with lower urinary tract symptoms
CPT/HCPCS: 36415; 84153